=== PATIENT | female | born 1980 | race Caucasian/White ===

== ENCOUNTER → 2019-01-21 | Outpatient (CLI) | payer OTHER ==
[~2019-01-21] MED LIST: AMOCLA875 PO; AMOX875 PO; CIPR500 PO; FLUC150A PO; HYDACE5 PO; HYDR1TAB94; HYDR1TAB94 PO; Keflex500 MG PO; MECL25 PO; METR500 PO; MULVITMIND PO; Macrobid 100 M100 MG PO; NAPR220; PROM25 PO; Percocet 5-3251 EACH PO; Pyridium100 MG PO; TRAM50 PO; VICODIN ES 7.51 EACH PO; VITAMIN D-32000 UNIT PO; Verotin-Gr Cap1 EACH PO; Zofran8 MG PO
== END | disposition home or self-care (01) ==
LOC: LAB SHORT 13:33 → LAB 13:33
DX: Z34.80 Encounter for supervision of other normal pregnancy, unspecified trimester (principal)
CPT/HCPCS: 87081; 87653

== ENCOUNTER 2019-02-15 05:45 | Inpatient (IN) | payer OTHER ==
[2019-02-14 15:37] LABS: BASOPHILS ABSOLUTE AUTO 0.04 K/mm3 (0.00-0.23); BASOPHILS PERCENT AUTO 0 % (0-2); EOSINOPHILS ABSOLUTE AUTO 0.07 K/mm3 (0.00-0.68); EOSINOPHILS PERCENT AUTO 1 % (0-6); Hematocrit 34.1 % (33.0-51.0); Hemoglobin 11.6 g/dL (11.5-16.0); IMMATURE GRAN ABSOLUTE AUTO 0.07 K/mm3 (0.00-0.10); IMMATURE GRAN PERCENT AUTO 1 % (0-1); LYMPHOCYTES ABSOLUTE AUTO 1.43 K/mm3 (0.84-5.20); LYMPHOCYTES PERCENT AUTO 14 % (21-46); MONOCYTES ABSOLUTE AUTO 0.46 K/mm3 (0.16-1.47); MONOCYTES PERCENT AUTO 5 % (4-13); Mean Corpuscular HGB 33.9 pg (26.0-34.0); Mean Corpuscular Volume 100 fL (80-100); Mean Platelet Volume 10.2 fL (9.1-12.4); NEUTROPHILS PERCENT AUTO 79 % (41-73); Platelet Count 214 K/mm3 (150-400); RDW Coefficient Variation 13.4 % (11.7-14.2); RDW Standard Deviation 48.2 fL (35.1-46.3); Red Blood Cell Count 3.42 M/mm3 (3.80-5.20); White Blood Cell Count 10.07 K/mm3 (4.00-11.30)
[~2019-02-15] VITALS: Ht 172.7 cm; Wt 122.0 kg
--- NOTE | 2019-02-15 08:35 | NUR ---
02/15/19 0835 Yanni Lui VIABLE FEMALE, BREECH, BORN AT 0805, 7/8, 3930 grams 8# 11oz. CORD BLOOD GIVEN TO NAA GUZMAN. NO GASES SENT. FALLOPIAN TUBE SEGMENTS SENT TO LAB.
--- NOTE | 2019-02-15 13:35 | NUR ---
[facility] DONE
--- NOTE | 2019-02-15 16:03 | NUR ---
[facility] done
--- NOTE | 2019-02-15 16:56 | NUR ---
[facility] done
--- NOTE | 2019-02-16 03:15 | NUR ---
PT DECLINES NEED FOR [facility]W CARE AT THIS TIME, SNACK GIVEN AND RESTREPO EMPTIED.
[2019-02-16 05:33] LABS: Hematocrit 30.7 % (33.0-51.0); Hemoglobin 10.1 g/dL (11.5-16.0); Mean Corpuscular HGB 32.9 pg (26.0-34.0); Mean Corpuscular HGB Conc 32.9 g/dL (31.5-36.5); Mean Corpuscular Volume 100 fL (80-100); Mean Platelet Volume 10.6 fL (9.1-12.4); Platelet Count 190 K/mm3 (150-400); RDW Coefficient Variation 13.3 % (11.7-14.2); RDW Standard Deviation 47.8 fL (35.1-46.3); Red Blood Cell Count 3.07 M/mm3 (3.80-5.20); White Blood Cell Count 12.01 K/mm3 (4.00-11.30)
--- NOTE | 2019-02-16 07:08 | NUR ---
K-PAD GIVEN FOR ABDOMINAL DISCOMOFORT.
--- NOTE | 2019-02-16 14:39 | NUR ---
PATIENT SLEEPING DENIES NEED FOR PAIN MEDICATION
[2019-02-17] MEDS ORDERED: IBUP800 (10:07)
[2019-02-17] MEDS ORDERED: Percocet 5-3251 EACH (10:07)
== END 2019-02-17 13:15 | disposition home or self-care (01) | DRG 785 ==
LOC: BC 05:45
PROVIDERS: ADMIT Obstetrics & Gynecology
PROC: 10D00Z1 Extraction of Products of Conception, Low, Open Approach (ICD-10-PCS; principal; 2019-02-15 07:30)
PROC: 0UT70ZZ Resection of Bilateral Fallopian Tubes, Open Approach (ICD-10-PCS; 2019-02-15 07:30)
DX: O34.211 Maternal care for low transverse scar from previous cesarean delivery (principal); Z3A.39 39 weeks gestation of pregnancy; Z37.0 Single live birth; O99.214 Obesity complicating childbirth; E66.9 Obesity, unspecified
CPT/HCPCS: 36415; 85025; 85027; 86850; 86900; 86901; 88305; 94644; J0690; J1100; J1885; J2270; J2370; J2405; J2590; J2704; J2765; J3010; J7120

== ENCOUNTER 2021-08-18 12:19 | Inpatient (IN) | payer OTHER ==
[~2021-08-18] VITALS: Ht 175.3 cm; Wt 89.8 kg
[~2021-08-18 12:19] MED LIST changes: +IBUP800; +Percocet 5-3251 EACH
[2021-08-18 13:20] LABS: BASOPHILS ABSOLUTE AUTO 0.04 K/mm3 (0.00-0.23); BASOPHILS PERCENT AUTO 0 % (0-2); EOSINOPHILS PERCENT AUTO 1 % (0-6); Hemoglobin 13.5 g/dL (11.5-16.0); IMMATURE GRAN ABSOLUTE AUTO 0.02 K/mm3 (0.00-0.10); IMMATURE GRAN PERCENT AUTO 0 % (0-1); LYMPHOCYTES PERCENT AUTO 16 % (21-46); MONOCYTES PERCENT AUTO 5 % (4-13); Mean Corpuscular HGB 31.9 pg (26.0-34.0); Mean Corpuscular HGB Conc 33.8 g/dL (31.5-36.5); Mean Corpuscular Volume 95 fL (80-100); Mean Platelet Volume 10.2 fL (9.1-12.4); NEUTROPHILS ABSOLUTE AUTO 7.32 K/mm3 (1.96-9.15); NEUTROPHILS PERCENT AUTO 77 % (41-73); Platelet Count 247 K/mm3 (150-400); RDW Coefficient Variation 11.7 % (11.7-14.2); RDW Standard Deviation 39.8 fL (35.1-46.3); Red Blood Cell Count 4.23 M/mm3 (3.80-5.20); White Blood Cell Count 9.48 K/mm3 (4.00-11.30)
[2021-08-18 13:40] LABS: Influenza A, PCR NEGATIVE (NEGATIVE); Influenza B, PCR NEGATIVE (NEGATIVE); Resp Syncytial Virus, PCR NEGATIVE (NEGATIVE); SARS-Cov-2 (COVID-19) PCR, MMC NEGATIVE (NEGATIVE)
[2021-08-18 13:47] LABS: Alanine Aminotransfer (ALT/SGP 14 U/L (12-78); Albumin, Blood 3.3 g/dL (3.4-5.0); Albumin/Globulin Ratio 0.9 (0.8-1.8); Alk Phos 56 U/L (50-136); Anion Gap 6 mmol/L (6-16); Aspartate Aminotrans (AST/SGOT 7 U/L (12-37); Bilirubin, Total 0.6 mg/dL (0.1-1.0); Blood Urea Nitrogen 8 mg/dL (8-24); Bun/Creatinine Ratio 12.1 (12.0-20.0); CO2, Blood 27 mmol/L (21-32); Calcium, Blood 8.6 mg/dL (8.5-10.1); Chloride, Blood 108 mmol/L (98-108); Creatinine, Blood 0.66 mg/dL (0.40-1.00); Globulin, Blood 3.5 g/dL (2.2-4.0); Glomerular Filtration Rate >60 (60-); Glucose, Blood 90 mg/dL (70-99); Potassium, Blood 3.7 mmol/L (3.5-5.5); Sodium, Blood 141 mmol/L (136-145); Total Protein, Blood 6.8 g/dL (6.4-8.2)
--- NOTE | 2021-08-18 18:14 | NUR ---
ARRIVED FROM ED VIA W/C, A&O X4, C/O PAIN IN ANAL AREA, NO REDNESS NOTED IN AREA, PT REPORTS PAIN IS MORE "ON THE INSIDE" DENIES ANY FEVERS, PAIN MED ORDERS REQUESTED FROM DR. MONTENEGRO, PT TO BE NPO AFTER MN FOR OR TOMORROW.
--- NOTE | 2021-08-19 08:37 | NUR ---
SUMMARY PREOP FOR TODAY.NPO.VOIDING.IV INFUSING.PAIN CONTROLLED WITH TORADOL.
--- NOTE | 2021-08-19 10:08 | NUR ---
08/19/21 1008 Toña Sanchez PT ON SCHEDULED ZOSYN AND RECIEVED PRIOR TO ARRIVAL TO OR.
--- NOTE | 2021-08-19 10:44 | NUR ---
0915 PATIENT WAS TAKEN TO OR BY PERSONNEL, NO NEW ISSUES NOTED UPON TEST ENG.
--- NOTE | 2021-08-19 11:37 | NUR ---
[address] MONTENEGRO IN REGARDS TO PATIENTS HR OCCASIONALLY DROPS TO HIGH 48 TO LOW 50'S. NO NEW ORDERS. INSTRUCTED FOR PATIENT TO HAVE WORK UP ON OUT PATIENT BASES. INFORMED PATIENT REGARDING LOW HR AT TIMES AND TO FOLLOW UP WITH PRIMARY DR. WILL PASS ON INFORMATION TO FLOOR NURSE.
--- NOTE | 2021-08-19 12:07 | NUR ---
1125 RECEIVED PATIENT FROM RECOVERY ACCOMPANIED BY NURSING HOME MANAGER REAL.AOX4, OFELIA DRAIN NO DRAINAGE NOTED, MADONNA PANTIES DRY & INTACT, V/S CHECKED SEE V/S RECORD. LUNGS CLEAR, NO EDEMA TO ALL EXTREMITIES, PAIN OF 7/10 TO VAGINAL & ANAL AREA, WILL GIVE PAIN MEDICINE BOO.LEFT AC IV PATENT.
[2021-08-19] MEDS ORDERED: OXAYDO5 M1 PO (15:15)
[2021-08-19] MEDS ORDERED: AMOX-CLAV 875-1 EAC1 PO (15:17)
--- NOTE | 2021-08-19 15:41 | NUR ---
DISCHARGED PATIENT TO HOME, D/C INSTRUCTIONS GIVEN INCLUDING FOLLOW UP WITH , PRESCRIPTIONS GIVEN FOR PAIN MED. & ANTIBIOTIC. ALSO INSTRUCTED TO FOLLOW UP WITH HER PCP PER DR. MONTENEGRO'S ORDER RE:LOW BLOOD PRESSURES & LOW PULSE RATES TODAY AFTER PROCEDURE (D&C),PATIENT VERBALIZED UNDERSTANDING. PATIENT AMBULATED WELL TO EXIT, REFUSED TO USE WHEELCHAIR, DENIES DIZZINESS/LIGHTHEADEDNESS.
--- NOTE | 2021-08-19 16:55 | NUR ---
LATE ENTRY: PATIENT HAD SCDs ON TO BLE UPON COMING BACK TO THE UNIT FROM PACU AFTER THE PROCEDURE. COMPLAINTS OF LIGHTHEADEDNESS UPON QUICK GETTING UP ON BED TO GO BATHROOM AROUND 1225, ADVISED TO GET UP SLOWLY INSTEAD. DENIED ANY LIGHTHEADEDNESS/DIZZINESS AFTER THAT & WAS ABLE TO AMBULATE TO THE BATHROOM WITH A WALKER WITHOUT PROBLEMS.
== END 2021-08-19 15:37 | disposition home or self-care (01) | DRG 395 ==
LOC: ER 12:19 → ERHOLD 14:53 → SURS 14:53
PROVIDERS: Student in an Organized Health Care Education/Training Program; ADMIT Surgery
PROC: 0J9B0ZZ Drainage of Perineum Subcutaneous Tissue and Fascia, Open Approach (ICD-10-PCS; principal; 2021-08-19 09:30)
DX: K61.0 Anal abscess (principal); Z20.822 Contact with and (suspected) exposure to COVID-19; Z88.5 Allergy status to narcotic agent; Z88.1 Allergy status to other antibiotic agents; Z90.49 Acquired absence of other specified parts of digestive tract; Z87.891 Personal history of nicotine dependence; Z98.890 Other specified postprocedural states
CPT/HCPCS: 0241U; 72193; 80053; 85025; 87070; 87075; 87147; 87205; 96374; 96375; 99284-25; A9270; J1100; J1885; J2250; J2270; J2405; J2543; J2704; J3010; J7030; J7040; J7120; Q9967

== ENCOUNTER → 2021-12-26 | Outpatient (CLI) | payer OTHER ==
[~2021-12-26] MED LIST changes: +AMOX-CLAV 875-1 EAC1 PO; +OXAYDO5 M1 PO
[2021-12-29 15:11] LABS: HPV 16 Negative (Negative); HPV 18 Negative (Negative); HPV OTHER HR TYPES Negative (Negative)
== END | disposition home or self-care (01) ==
LOC: LAB 13:46 → LAB SHORT 13:46
PROVIDERS: Obstetrics & Gynecology
DX: Z01.419 Encounter for gynecological examination (general) (routine) without abnormal findings (principal)
CPT/HCPCS: 87624; G0123

== ENCOUNTER → 2022-04-30 | Outpatient (CLI) | payer OTHER ==
[2022-05-07 18:10] LABS: ANABASINE 1 ng/mL (.); COTININE >1000.0 ng/mL (.); NICOTINE >1000.0 ng/mL (.)
== END | disposition home or self-care (01) ==
LOC: LAB 17:09 → LAB SHORT 17:09
PROVIDERS: Obstetrics & Gynecology
DX: F17.200 Nicotine dependence, unspecified, uncomplicated (principal)
CPT/HCPCS: G0480

== ENCOUNTER 2022-06-10 08:55 | Day surgery (SDC) | payer OTHER ==
[~2022-06-10] VITALS: Ht 172.7 cm; Wt 85.2 kg
[~2022-06-10 08:55] MED LIST changes: +IBU800 M1 PO; +OXYC5 PO
--- NOTE | 2022-06-10 10:05 | NUR ---
History, Chart, Medications and Allergies reviewed before start of procedure. Patient confirms NPO status and agrees with scheduled surgery. Lungs clear T/O to Auscultation. Mom at bedside.
[2022-06-10] MEDS ORDERED: GLAUCOMA DROPS BOTHEYES (10:20)
--- NOTE | 2022-06-10 17:22 | NUR ---
DISCHARGE SUMMARY POD0 ROBOTIC LAP HYSTER, A/O X4, VSS, TOLERATING PO, AMBULATING INDEPENDENTLY, VOIDING, REPORTS PAIN TOLERABLE WITHOUT NEEDING NARCOTICS. PT REPORTS BEING EAGER TO GET HOME TODAY. DISCUSSED DISCHARGE INFORMATION WITH THE PATIENT INCLUDING HOME CARE, MEDICATIONS, FOLLOW UP INFORMATION, AND S/SX TO LOOK OUT FOR AFTER LEAVING. REMOVED BOTH IV ACCESS DEVICES THAT WERE IN PLACE, ESCORTED OUT VIA WC TO PRIVATE AUTO TO GO HOME WITH HER MOM.
== END 2022-06-10 17:00 | disposition home or self-care (01) ==
LOC: ORSCMMR 08:55 → ORD 09:30 → ORSCMMR 09:30 → SURS 13:31 → ORSCMMR 17:00
PROVIDERS: Obstetrics & Gynecology
PROC: 0UT14ZZ Resection of Left Ovary, Percutaneous Endoscopic Approach (ICD-10-PCS; principal; 2022-06-10 09:30)
PROC: 0UT94ZZ Resection of Uterus, Percutaneous Endoscopic Approach (ICD-10-PCS; principal; 2022-06-10 09:30)
PROC: 0UT9FZZ Resection of Uterus, Via Natural or Artificial Opening With Percutaneous Endoscopic Assistance (ICD-10-PCS; principal; 2022-06-10 09:30)
DX: N92.1 Excessive and frequent menstruation with irregular cycle (principal); N94.6 Dysmenorrhea, unspecified; N80.03 Adenomyosis of the uterus; K66.0 Peritoneal adhesions (postprocedural) (postinfection); N83.292 Other ovarian cyst, left side; F17.210 Nicotine dependence, cigarettes, uncomplicated
CPT/HCPCS: 58571; S2900; 88307; A9270; J0690; J1100; J1170; J1885; J2270; J2405; J2704; J2765; J3010; J7120

== ENCOUNTER → 2022-06-25 | Outpatient (CLI) | payer OTHER ==
[~2022-06-25] MED LIST changes: +GLAUCOMA DROPS BOTHEYES
[2022-06-25 17:26] LABS: Source, Urine Clean Catch
[2022-06-25 19:05] LABS: Appearance, Urine Clear (Clear); Bilirubin, Urine Neg (Neg); Blood, Urine 1+ (Neg); Glucose Qualitative, Urine Neg (Neg); Ketones, Urine Neg (Neg); Leukocyte Esterase, Urine 1+ (Neg); Nitrite, Urine Neg (Neg); Protein, Urine Neg (Neg); Urobilinogen, Urine NORM (Normal); pH, Urine 6.5 (5.0-8.0)
[2022-06-25 19:18] LABS: Color, Urine Pale Yellow (P-Yellow)
[2022-06-25 19:20] LABS: Squamous Epithelial Cells Mod /hpf (Few)
[2022-06-25 19:21] LABS: Bacteria Rare /hpf; Red Blood Cells, Urine 0-2 /hpf (0-2); Renal Epithelial Rare /hpf (0-Rare); White Blood Cells, Urine 0-2 /hpf (0-5)
== END | disposition home or self-care (01) ==
LOC: LAB SHORT 17:24 → LAB 17:24
PROVIDERS: Obstetrics & Gynecology
DX: R30.0 Dysuria (principal)
CPT/HCPCS: 81001; 87086

== ENCOUNTER 2023-04-21 08:11 | Day surgery (SDC) | payer OTHER ==
[2023-04-21] VITALS (23 sets, daily range): BP systolic 71–107; BP diastolic 51–70
[~2023-04-21] VITALS: Ht 172.7 cm; Wt 94.0 kg
--- NOTE | 2023-04-21 08:58 | NUR ---
History, Chart, Medications and Allergies reviewed before start of procedure. Lungs clear T/O to Auscultation. Patient confirms NPO status and agrees with scheduled surgery. Pre-Op teaching done. Pt verbalizes understanding. Patient States Post-Procedure ride home has been arranged.
--- NOTE | 2023-04-21 10:29 | NUR ---
04/21/23 1029 Nitin Leonard HISTORY, CHART, MEDICATIONS AND ALLERGIES REVIEWED BEFORE START OF PROCEDURE. PATIENT CONFIRMS NPO STATUS AND AGREES WITH SCHEDULED PROCEDURE. 3-LEAD EKG REVIEWED WITH PHYSICIAN PRIOR TO START OF PROCEDURE. MONITOR INTACT WITH CONTINUOUS PULSE OXIMETRY,CAPNOGRAPHY, 3-LEAD EKG, INTERMITTENT BP. SUPPLEMENTAL O2 TO BE TITRATED THROUGHOUT PROCEDURE TO MAINTAIN O2 SATURATION ABOVE 90%. PATIENT DETERMINED TO BE ASA APPROPRIATE FOR PROPOFOL SEDATION PRIOR TO START OF PROCEDURE BY
--- NOTE | 2023-04-21 11:20 | NUR ---
Discharge instructions reviewed with patient. Patient verbalizes understanding. Copy given to patient to take home. PT DRANK COFFEE, C/O ABD CRAMPING 02/15. COFFEE HELPED SOME. Discharged via wheelchair to private car for ride home.
== END 2023-04-21 11:25 | disposition home or self-care (01) ==
LOC: ORSCMMR 08:11 → ORD 09:30 → ORSCMMR 09:30
PROVIDERS: Internal Medicine Gastroenterology
PROC: 0DBN8ZX Excision of Sigmoid Colon, Via Natural or Artificial Opening Endoscopic, Diagnostic (ICD-10-PCS; principal; 2023-04-21 09:30)
PROC: 0DBK8ZX Excision of Ascending Colon, Via Natural or Artificial Opening Endoscopic, Diagnostic (ICD-10-PCS; principal; 2023-04-21 09:30)
DX: K62.5 Hemorrhage of anus and rectum (principal); D12.2 Benign neoplasm of ascending colon; D12.5 Benign neoplasm of sigmoid colon; K57.30 Diverticulosis of large intestine without perforation or abscess without bleeding; K64.4 Residual hemorrhoidal skin tags; K62.4 Stenosis of anus and rectum; H40.9 Unspecified glaucoma; Z79.899 Other long term (current) drug therapy
CPT/HCPCS: 88305; J2250; J2704; J7120

== ENCOUNTER 2024-05-20 07:43 | Day surgery (SDC) | payer OTHER ==
[~2024-05-20] VITALS: Ht 172.7 cm; Wt 96.2 kg
[2024-05-20] VITALS (19 sets, daily range): BP systolic 96–114; BP diastolic 58–82
[~2024-05-20 07:43] MED LIST changes: +BUSP5 PO
[2024-05-20] MEDS ORDERED: Lactated Ringer's 1,000 ML IV SCH (07:55)
--- NOTE | 2024-05-20 08:18 | NUR ---
Ambulatory in Day Surgery. History, Chart, Medications and Allergies reviewed before start of procedure. Lungs clear T/O to Auscultation. Patient confirms NPO status and agrees with scheduled surgery. Pre-Op teaching done. Pt verbalizes understanding. Patient States Post-Procedure ride home has been arranged.
[2024-05-20] MEDS ORDERED: propofoL 40 ML IV ONE (08:26)
[2024-05-20] MEDS ORDERED: Midazolam HCl 1MG / ML 2ML Vial ONE (08:32)
--- NOTE | 2024-05-20 08:32 | NUR ---
05/20/24 0832 Jory Paredes HISTORY, CHART, MEDICATIONS AND ALLERGIES REVIEWED BEFORE START OF PROCEDURE. PATIENT CONFIRMS NPO STATUS AND AGREES WITH SCHEDULED PROCEDURE. 3-LEAD EKG REVIEWED WITH PHYSICIAN PRIOR TO START OF PROCEDURE. MONITOR INTACT WITH CONTINUOUS PULSE OXIMETRY,CAPNOGRAPHY, 3-LEAD EKG, INTERMITTENT BP. SUPPLEMENTAL O2 TO BE TITRATED THROUGHOUT PROCEDURE TO MAINTAIN O2 SATURATION ABOVE 90%. PATIENT DETERMINED TO BE ASA APPROPRIATE FOR PROPOFOL SEDATION PRIOR TO START OF PROCEDURE BY .
--- NOTE | 2024-05-20 09:27 | NUR ---
Discharge instructions reviewed with patient. Patient verbalizes understanding. Copy given to patient to take home. Patient States Post-Procedure ride home has been arranged. Discharged via wheelchair to private car for ride home.
== END 2024-05-20 09:27 | disposition home or self-care (01) ==
LOC: ORSCMMR 07:43 → ORD 08:30 → ORSCMMR 08:30
PROVIDERS: Internal Medicine Gastroenterology
PROC: 0DBN8ZX Excision of Sigmoid Colon, Via Natural or Artificial Opening Endoscopic, Diagnostic (ICD-10-PCS; principal; 2024-05-20 08:30)
DX: K63.5 Polyp of colon (principal); Z86.010 Personal history of colon polyps; F41.9 Anxiety disorder, unspecified; Z79.899 Other long term (current) drug therapy
CPT/HCPCS: 88305; J2250; J2704; J7120